=== PATIENT | female | born 1945 | race Caucasian/White ===

== ENCOUNTER 2017-02-19 22:19 | Inpatient (IN) | payer MEDICARE ==
[~2017-02-19] VITALS: Ht 172.7 cm; Wt 68.0 kg
[~2017-02-19 22:19] MED LIST: ATIVAN1 MG PO; BAYER CHEWABLE81 MG PO; CALCIUM 500 + D1 TAB PO; FIORICET; LISINOPRIL5 MG PO; LOPRESSOR25 MG PO; MULTIPLE VITAMI1 TA1 PO; PLAVIX75 MG PO; ZETIA10 MG PO
[2017-02-19 23:09] LABS: BASOPHILS 0.4 % (0-2); EOSINOPHILS 4.2 % (0-7); HEMATOCRIT 39.5 % (36.0-48.0); IMMATURE GRANULOCYTES 0.1 % (0-5); LYMPHOCYTES 28.2 % (15-50); MCH 30.7 pg (26.0-34.0); MCHC 32.9 g/dL (31.0-37.0); MCV 93.4 fL (80.0-100.0); MONOCYTES 9.2 % (2-11); NEUTROPHILS 57.9 % (40-80); PLATELET COUNT 228 10x3/uL (130-400); RBC 4.23 10x6/uL (4.00-5.40); WBC 7.6 10x3/uL (4.8-10.8)
[2017-02-19 23:21] LABS: INR 0.96 (0.85-1.17); PROTIME 12.6 SECONDS (11.6-15.0)
[2017-02-20] VITALS (13 sets, daily range): BP systolic 91–146; BP diastolic 43–75; Ht 172.7 cm; Wt 68.0 kg
--- NOTE | 2017-02-20 07:30 | NUR ---
RECIEVED PT DURING WALKING ROUNDS. PT RESTING IN BED WITH NO COMPLAINTS OF PAIN AND SLIGHT DISCOMFORT IN HER HAND. ASSESSMENT DONE PER FLOWSHEET. BED IN LOW POSITION AND CALL LIGHT WITHIN REACH. WILL CONTINUE TO MONITOR.
--- NOTE | 2017-02-20 08:50 | NUR ---
PT TAKEN FOR SURGERY AT THIS TIME.
[2017-02-20 09:19] LABS: CALC OSMOLALITY 274 mosm/kg (275-300); CALCIUM 9.2 mg/dL (8.5-10.1); CHLORIDE - SERUM 102 mmol/L (98-107); CREATININE - SERUM 0.6 mg/dL (0.6-1.3); GLUCOSE 108 mg/dL (74-106); POTASSIUM - SERUM 3.8 mmol/L (3.5-5.1); SODIUM 136 mmol/L (136-145); UREA NITROGEN 17 mg/dL (7-18); eGFR NON AFRICAN AMERICAN > 90 mL/min (90-120)
--- NOTE | 2017-02-20 10:50 | NUR ---
RECIEVED PT FROM SURGERY AT THIS TIME. REPORT RECIEVED FROM BHAVANI RANKIN. PT RESTING COMFORTABLY IN BED WITH NO COMPLAINTS OF PAIN OF DISCOMFORT AT THIS TIME. BED IN LOW POSITION AND CALL LIGHT WITHIN REACH. WILL CONTINUE TO MONITOR.
--- NOTE | 2017-02-20 14:24 | OP ---
PATIENT NAME: MEGHAN FAIRCHILD MEDICAL RECORD: [id number] :43 LOCATION:D[id number] ADMISSION DATE:02/20/17 SURGEON: LINH ONOFRE MD DATE OF OPERATION: 02/20/2017 PREOPERATIVE DIAGNOSES: 1. Compartment syndrome radial aspect of right hand. 2. Acute carpal tunnel syndrome. 3. Massive hematoma to the dorsum of the hand. POSTOPERATIVE DIAGNOSES: 1. Compartment syndrome radial aspect of right hand. 2. Acute carpal tunnel syndrome. 3. Massive hematoma to the dorsum of the hand. PROCEDURE: 1. Fasciotomies to the thenar eminence in the first and second dorsal interosseous space. 2. Carpal tunnel release. 3. Hematoma evacuation. SURGEON: Linh Onofre MD ANESTHESIA: General. INTRAOPERATIVE COMPLICATIONS: None. SUMMARY OF PATHOLOGIC FINDINGS: Upon excising the first and second interosseous webspace, the patient was found to have massive hematoma that was acutely evacuated. It was in blood clot as well as fresh blood form. Upon entering the patient's thenar eminence, the patient's muscle fascia herniated through the wound consistent with carpal tunnel syndrome and the patient's carpal tunnel canal was filled with edema and very swollen. INDICATIONS: This is a 71-year-old female who evidently was getting ready to go on a trip and bumped the back of her hand. As she is on Plavix and aspirin, she began having acute hematoma and presented to the ER in the operations logistics analyst hours of 02/20/2017. She was brought to the operating room for decompression. OPERATIVE SUMMARY IN DETAIL: After obtaining the appropriate preoperative orthopedic surgery consents as well as anesthetic consultation, evaluation and clearance, the patient was brought to the operating room and placed on the operating table in supine position. After general laryngeal mask was administered, tourniquet was placed about the proximal aspect of the right hand. It was not used during this case. The right hand was prepped and draped in routine sterile fashion. Attention was first turned to fasciotomy of the thenar eminence. A small incision was made along the thenar eminence resulting in acute decompression of thenar space. Second incision was made along the dorsum of the second metacarpal to reach both the interosseous webspace 1 and 2. At this point, a massive amount of hematoma was evacuated as well. Having completed the entire evacuation, attention was turned to acute carpal tunnel release. A small incision was made in the mid palmar crease. Distal aspect of the transverse carpal ligament was identified. It was incised in its entirety then under direct visualization. Having completed this, the wounds were left open. The hand was dressed sterilely. The patient was awakened, taken to OPERATIVE REPORT [id number] MEGH[facility] FAIRCHILD recovery room in stable condition. All final needle and sponge counts were correct. TRANSINT:[id number] Voice Confirmation ID: [id number] DOCUMENT ID: [id number] JEMIMA RODRIGUEZ, LINH BUNDY at 1424 CC: [id number] DICTATION DATE: 02/20/17 0939 CUSHION GUM APPLICATOR: 02/20/17 1203 ADM IN [place] [id number] [place] [id number]
[2017-02-20 21:18] LABS: HEMATOCRIT 34.2 % (36.0-48.0); HEMOGLOBIN 11.2 g/dL (12-16)
[2017-02-21] VITALS: BP 114/50
--- NOTE | 2017-02-21 02:26 | NUR ---
RESTING WITH EYES CLOSED, NO DISTRESS NOTED, FALL PRECAUTIONS IN PLACE, CL IN REACH
--- NOTE | 2017-02-21 03:04 | NUR ---
REC'D PATIENT LYING IN BED. ALERT AND ORIENTED X4. DENIED PAIN AT THIS TIME. DENIED FURTHER NEEDS AT THIS TIME. INSTRUCTED TO CALL IF NEEDED ANYTHING. VERBALIZED UNDERSTANDING. WILL ADMIN PM/AM MEDS PRESCRIBED. WILL CONT TO MONITOR THROUGHOUT THE NIGHT. ALSO REINFORCED HER DRESSING ON THE RIGHT HAND. BED LOW, LOCKED, CALL LIGHT IN REACH.
[2017-02-21 04:00] VITALS: BP 103/56
--- NOTE | 2017-02-21 07:45 | NUR ---
PT AOX4 RESP EVEN AND NONLABORED PT DENIES NEEDS AT THIS TIME IV TO RIGHT HAND PATENT AND INTACT SRX2 BED IN LOWEST SETTING CALL LIGHT WITHIN REACH WILL CONTINUE TO MONITOR
[2017-02-21 08:12] VITALS: BP 124/75
[2017-02-21 12:27] VITALS: BP 135/76
[2017-02-21 16:26] VITALS: BP 126/73
[2017-02-21 20:00] VITALS: BP 149/79
--- NOTE | 2017-02-21 21:12 | NUR ---
CHANGED PATIENT'S DRESSING TO HER RIGHT HAND. PATIENT IS RESTING IN BED AND DENIES OTHER NEEDS AT THIS TIME. BED IN LOWEST POSITION AND CALL LIGHT WITHIN REACH.
[2017-02-22] VITALS: BP 105/71
[2017-02-22 04:00] VITALS: BP 125/63
--- NOTE | 2017-02-22 07:40 | NUR ---
PT AOX4 RESP EVEN AND NONLABORED PT DENIES NEEDS AT THIS TIME IV TO LEFT HAND PATENT AND INTACT SRX2 BED AT LOWEST SETTING CALL LIGHT WITHIN REACH WILL CONTINUE TO MONITOR
--- NOTE | 2017-02-22 10:47 | NUR ---
Patient Name: MEGHAN FAIRCHILD Admission Status: ER Accout number: [id number] Admission Date: 02-20-2017 : 1945 Admission Diagnosis: Attending: LAVON Current LOS: 2 Anticipated DC Date: 02-24-2017 Planned Disposition: Home with Home Health Primary Insurance: MEDICARE A & B Discharge Planning Comments: CM MET WITH PATIENT REGARDING DISCHARGE NEEDS AND PLANS. PATIENT STATED SHE LIVES ALONE BUT HER SISTER LIVES CLOSE AND WILL DRIVE HER HOME AT DISCHARGE. PATIENT HAS NO STEPS OR STAIRS AT HER HOME. PATIENT IS INDEPENDENT WITH HER CARE AND HAS NO DME AT HOME. PATIENTS PCP IS DR. SWANSON AND PHARMACY IS [facility] AT THE [facility]. PATIENT SIGNED THE IRIS FORM WITH EDD 1ST AND ELITE 2ND IF NEEDED. CM WILL CONTINUE TO FOLLOW PATIENT WITH D/C NEEDS AND PLANS. PCP DR[facility] [phone] SALMA RHOADES (SISTER) [phone] Media Relations Specialist: Елена Baker Is the patient Alert and Oriented? Yes 0 * How many steps to enter\exit or inside your home? 0 0 * PCP DR. SWANSON 0 * [facility] 0 * Preadmission Environment Home Alone 0 * ADLs Independent 0 * Equipment None 0 * List name and contact numbers for known caregivers / representatives who currently or will assist patient after discharge: SALMA RHOADES (SISTER) [phone] 0 * Community resources currently utilized None 0 * Additional services required to return to the preadmission environment? Yes 0 * Can the patient safely return to the preadmission environment? Yes 0 * Has this patient been hospitalized within the prior 30 days at any hospital? No 0 Grand Total: 0
[2017-02-22 12:44] VITALS: BP 128/59
[2017-02-22 16:30] VITALS: BP 117/62
[2017-02-22 20:00] VITALS: BP 116/55
--- NOTE | 2017-02-22 21:03 | NUR ---
PATIENT IS RESTING IN BED AND DENIES NEEDS AT THIS TIME. I COMPLETED MY ASSESSMENT AND ADMINISTERED MEDS PER ORDERS. PATIENT VERBALIZED MILD ANXIETY ABOUT HER PROCEDURE TOMORROW. PATIENT DENIES OTHER NEEDS AT THIS TIME. PATIENT'S BED IS IN THE LOWEST POSITION AND CALL LIGHT IS WITHIN REACH. ENCOURAGED THE PATIENT TO CALL IF SHE HAS FURTHER NEEDS.
[2017-02-23 04:39] VITALS: BP 152/70
[2017-02-23 06:51] LABS: HEMATOCRIT 33.4 % (36.0-48.0); HEMOGLOBIN 11.2 g/dL (12-16); MCH 31.3 pg (26.0-34.0); MCHC 33.5 g/dL (31.0-37.0); MCV 93.3 fL (80.0-100.0); MEAN PLATELET VOLUME 11.4 fL (7.4-10.4); RBC 3.58 10x6/uL (4.00-5.40); RDW 12.9 % (11.5-14.5)
--- NOTE | 2017-02-23 07:15 | NUR ---
REPORT RECEIVED FROM BREEDER HEN SERVICE TECHNICIAN NURSE. CALL LIGHT IN REACH.
[2017-02-23 07:16] LABS: ANION GAP 12.3 mmol/L (8-16); CALCIUM 8.3 mg/dL (8.5-10.1); CARBON DIOXIDE 26.8 mmol/L (21.0-32.0); CREATININE - SERUM 0.8 mg/dL (0.6-1.3); POTASSIUM - SERUM 3.1 mmol/L (3.5-5.1)
[2017-02-23 07:58] VITALS: BP 143/71
--- NOTE | 2017-02-23 09:43 | NUR ---
ASSESSMENT COMPLETED. AM MEDS ADMINISTERED WITH SIP OF WATER. REFUSES SCDs. CALL LIGHT IN REACH. WILL CONTINUE WITH PLAN OF CARE.
--- NOTE | 2017-02-23 11:20 | NUR ---
NO NEEDS VOICED AT THIS TIME. CALL LIGHT IN REACH.
[2017-02-23 12:54] VITALS: BP 133/65
--- NOTE | 2017-02-23 13:20 | NUR ---
SITTING IN CHAIR AT THIS TIME. WAITING FOR SURGERY. STILL NPO.
--- NOTE | 2017-02-23 14:00 | NUR ---
NPO. WAITING FOR SURGERY.
--- NOTE | 2017-02-23 14:26 | NUR ---
PREOP MEDS ADMINISTERED. PATIENT HAS VOIDED.
--- NOTE | 2017-02-23 15:53 | NUR ---
TO OR VIA BED.
[2017-02-23 16:02] VITALS: BP 135/70
--- NOTE | 2017-02-23 17:40 | NUR ---
BACK IN ROOM AT THIS TIME. VSS. DENIES PAIN. FOOD TRAY AND ORANGE JUICE GIVEN TO PATIENT. VISITOR AT BEDSIDE. STILL REFUSES SCDs. CALL LIGHT IN REACH. WILL CONTINUE WITH PLAN OF CARE.
[2017-02-23 17:41] VITALS: BP 138/71
--- NOTE | 2017-02-23 18:38 | NUR ---
NO CHANGES IN INITIAL ASSESSMENT. STILL REFUSES SCDs. CALL LIGHT IN REACH. WILL CONTINUE WITH PLAN OF CARE.
--- NOTE | 2017-02-23 20:00 | NUR ---
PATIENT IS RESTING IN BED WITH SISTER AT BEDSIDE. HUNG FLUIDS PER ORDERS. BED IN LOWEST POSITION AND CALL LIGHT WITHIN REACH. ENCOURAGED THE PATIENT TO CALL IF SHE HAS NEEDS.
[2017-02-23 20:54] VITALS: BP 110/58
[2017-02-24] VITALS: BP 135/60
[2017-02-24 04:00] VITALS: BP 130/68
[2017-02-24 06:22] LABS: HEMATOCRIT 33.5 % (36.0-48.0); HEMOGLOBIN 11.1 g/dL (12-16)
--- NOTE | 2017-02-24 07:10 | NUR ---
REPORT RECEIVED FROM ETHYLBENZENE CONVERTER OPERATOR NURSE. CALL LIGHT IN REACH.
[2017-02-24 07:58] VITALS: BP 146/67
--- NOTE | 2017-02-24 08:59 | NUR ---
ASSESSMENT COMPLETED. AM MEDS ADMINISTERED. DANNI POWELL, IN ROOM TO SPEAK WITH PATIENT. CALL LIGHT IN REACH. WILL CONTINUE WITH PLAN OF CARE.
[2017-02-24] MEDS ORDERED: KEFLEX500 MG PO (09:20)
[2017-02-24 09:34] LABS: CALC OSMOLALITY 279 mosm/kg (275-300); CALCIUM 8.5 mg/dL (8.5-10.1); CARBON DIOXIDE 28.3 mmol/L (21.0-32.0); CHLORIDE - SERUM 104 mmol/L (98-107); CREATININE - SERUM 0.7 mg/dL (0.6-1.3); POTASSIUM - SERUM 3.5 mmol/L (3.5-5.1); SODIUM 140 mmol/L (136-145); UREA NITROGEN 15 mg/dL (7-18); eGFR NON AFRICAN AMERICAN 87 mL/min (90-120)
--- NOTE | 2017-02-24 09:42 | NUR ---
CM REASSESSMENT NOTE: PATIENT IS DISCHARGING HOME TODAY AND HER SISTER WILL BE DRIVING HER. [facility] HAS BEEN NOTIFIED AND THEY WILL CALL PATIENT TO SET UP TIME FOR VISIT. PATIENTS SISTER WILL BE ASSISTING WITH THE DRESSING CHANGES. D/C IMM SIGNED
[2017-02-24 09:53] LABS: GLUCOSE 99 mg/dL (74-106)
--- NOTE | 2017-02-24 10:06 | NUR ---
SITTING IN CHAIR. PLAVIX PO.
--- NOTE | 2017-02-24 11:18 | NUR ---
IV DC'D WITH TIP INTACT. DC INSTRUCTIONS EPXLAINED TO PATIENT. VERBALIZED UNDERSTANDING.
--- NOTE | 2017-02-24 11:45 | NUR ---
DC'D TO VEHICLE VIA WC WITH FAMILY.
== END 2017-02-24 11:45 | disposition home health service (06) | DRG 906 ==
LOC: D.ER 22:19 → OBSVTIME 02-20 01:23 → D.ER 02-20 01:23 → D.MS 02-20 01:23 → D.M2 02-20 01:23 → D.MS 02-20 01:23 → D.M2 02-20 01:31 → D.MS 02-20 17:43
PROVIDERS: Physician Assistant Medical; ADMIT Orthopaedic Surgery
PROC: 01N50ZZ Release Median Nerve, Open Approach (ICD-10-PCS; 2017-02-20)
PROC: 0X9J0ZZ Drainage of Right Hand, Open Approach (ICD-10-PCS; 2017-02-20)
PROC: 0KNC0ZZ Release Right Hand Muscle, Open Approach (ICD-10-PCS; principal; 2017-02-20 14:45)
DX: T79.A11A Traumatic compartment syndrome of right upper extremity, initial encounter (principal); I42.9 Cardiomyopathy, unspecified; W22.8XXA Striking against or struck by other objects, initial encounter; G56.01 Carpal tunnel syndrome, right upper limb; S60.221A Contusion of right hand, initial encounter; I10 Essential (primary) hypertension; I25.2 Old myocardial infarction; E78.5 Hyperlipidemia, unspecified; I25.10 Atherosclerotic heart disease of native coronary artery without angina pectoris

== ENCOUNTER → 2019-04-30 09:23 | Outpatient (CLI) | payer MEDICARE ==
[2017-02-20 15:23] VITALS: BMI 22.8
[~2019-04-30 09:23] MED LIST changes: +KEFLEX500 MG PO
--- NOTE | 2019-05-02 08:42 | EC ---
PATIENT:MEGHAN FAIRCHILD DATE OF SERVICE: 04/30/19 SEX: F MEDICAL RECORD: [id number] DATE OF : 41 LOCATION:[facility] AGE OF PATIENT: 74 ADMISSION DATE: 04/30/19 REFERRING PHYSICIAN: INTERPRETING PHYSICIAN: TANIA LAWRENCE MD ECHOCARDIOGRAM REPORT ECHO CHARGES 4 ECHO COMPLETE Date: 04/30/19 CLINICAL DIAGNOSIS: CARDIOMYOPATHY/MITRAL REGURG ECHOCARDIOGRAPHIC MEASUREMENTS (adult normal given) AC root (d.<3.7cm) 3.4 cm LV Septum d (<1.2 cm> 1.3 cm Valve Excursion 1.6 cm LV Septum (systole) 1.5 cm Left Atria (s.<4.0cm> 3.3 cm LVPW d(<1.2cm) 1.3 cm RV (d.<2.3cm) 3.2 cm LVPW (sytole) 1.4 cm LV diastole(<5.6CM) 5.7 cm MV E-F(>70mm/sec) cm LV systole 4.5 cm LVOT Diameter 2.1 cm MV exc.(>10mm) 1.5 cm Est.ejection fraction (50-75%) % DOPPLER: LVIT cm/sec A 90.0 cm/sec E 54.0 cm/sec LA cm/sec RVSP 25 mmHg LVOT 81 cm/sec AOP1/2T m/s Asc. Ao 112 cm/sec RVOT 56 cm/sec RA cm/sec PA 85 cm/sec AV Gradient Peak 5.03 mmHg AV Mean 2.54 mmHg AV Area 2.2 cm MV Gradient Peak 4.45 mmHg MV Mean 1.20 mmHg MV Area cm COMMENTS: Paperhanger Supervisor: 2 HENRIETTA CERON Powertrain Design Engineer: 3 Dr. Woods TAPE# PACS Pericardial Effusion N DATE OF SERVICE: Adequate 2D, color flow, spectral Doppler, and M-mode. Borderline LVH. LV internal dimensions are normal. LV is globally hypokinetic with reduced EF, estimated EF 35% to 40%. Aortic valve is tricuspid. No evidence of stenosis by Doppler interrogation. Left atrium normal at 3.3 cm. Mitral valve shows no prolapse. Moderate MR. Right-sided chambers grossly normal. Mild TR. TRANSINT:[id number] Voice Confirmation ID: [id number] DOCUMENT ID: [id number] ECHOCARDIOGRAM REPORT [id number] MEGHAN FAIRCHILD GREGORY A MD at 0842 CC: [id number] DICTATION DATE: 05/01/19 1337 CORE SHAPER: 05/01/19 1402 DEP CLI 04/30/19 [place] [id number] [place] [id number]
== END | disposition home or self-care (01) ==
LOC: D.HCCARDIO 09:23
PROVIDERS: ATTEND Internal Medicine Interventional Cardiology
DX: I42.9 Cardiomyopathy, unspecified (principal)

== ENCOUNTER → 2020-06-12 10:16 | Outpatient (CLI) | payer MEDICARE ==
[2017-02-20 15:23] VITALS: BMI 22.8
--- NOTE | ~2020-06-12 | EC ---
PATIENT:MEGHAN FAIRCHILD DATE OF SERVICE: 06/12/20 SEX: F MEDICAL RECORD: [id number] DATE OF : 41 [facility]GE [facility]: 75 ADMISSION DATE: 06/12/20 REFERRING PHYSICIAN: INTERPRETING PHYSICIAN: TANIA LAWRENCE MD ECHOCARDIOGRAM REPORT ECHO CHARGES 4 ECHO COMPLETE Date: 06/12/20 CLINICAL DIAGNOSIS: HX OF CARDIOMYOPATHY/ASSESS EF MITRAL AND TRICUSPID REGURG ECHOCARDIOGRAPHIC MEASUREMENTS (adult normal given) AC root (d.<3.7cm) 3.4 cm LV Septum d (<1.2 cm> 1.5 cm Valve Excursion 1.9 cm LV Septum (systole) 1.8 cm Left Atria (s.<4.0cm> 3.4 cm LVPW d(<1.2cm) 1.5 cm RV (d.<2.3cm) 3.6 cm LVPW (sytole) 1.7 cm LV diastole(<5.6CM) 5.7 cm MV E-F(>70mm/sec) cm LV systole 4.6 cm LVOT Diameter 1.9 cm MV exc.(>10mm) 1.1 cm Est.ejection fraction (50-75%) % DOPPLER: LVIT cm/sec A 118.0cm/sec E 62.0 cm/sec LA cm/sec RVSP 36 mmHg LVOT 79 cm/sec AOP1/2T m/s Asc. Ao 132 cm/sec RVOT 72 cm/sec RA cm/sec PA 95 cm/sec AV Gradient Peak 6.99 mmHg AV Mean 3.49 mmHg AV Area 1.7 cm MV Gradient Peak 5.43 mmHg MV Mean 1.75 mmHg MV Area cm COMMENTS: Information Technology Project Manager: 2 HENRIETTA CERON Cnc Milling Machinist: 3 Dr. Woods TAPE# PACS Pericardial Effusion N DATE OF SERVICE: Adequate 2D, color flow imaging, spectral Doppler, and M-mode. LVH is present. LV internal dimension is upper limits of normal at 5.7 cm. LV is mildly globally hypo with mildly reduced EF, estimated EF 40% to 45%. Aortic valve is tricuspid. No evidence of stenosis by Doppler interrogation. Trivial AI by color flow imaging. Left atrium is normal. Mitral valve shows no prolapse. Mild MR. Right-sided chambers are grossly normal. Trace TR. ECHOCARDIOGRAM REPORT [id number] MEGHAN FAIRCHILD NTS:[id number] Voice Confirmation ID: [id number] DOCUMENT ID: [id number] TANIA LAWRENCE MD CC: [id number] DICTATION DATE: 06/15/201108 SOCIAL WORK JOB TITLES: 06/15/202036 DEP CLI 06/12/20 [place] [id number]
== END | disposition home or self-care (01) ==
LOC: D.HCCECHO 06-08 11:00
PROVIDERS: ATTEND Internal Medicine Interventional Cardiology
DX: I42.9 Cardiomyopathy, unspecified (principal)